=== PATIENT | female | born 1990 | race Two or more races ===

== ENCOUNTER → 2017-08-21 | Outpatient (CLI) | payer SELFPAY ==
--- NOTE | 2017-08-21 15:48 | RADIOLOGY REPORT (SQ) ---
EXAM DESCRIPTION: U/S OB 14+ TRNABD 1GES W/O DOP COMPLETED DATE/TIME: 08/21/2017 3:33 pm REASON FOR STUDY: ENCOUNTER FOR SUPERVISION OF OTHER NORMAL , SECOND TRIMESTER Z34.82 ENCO UNTER FOR SUPRVSN OF NORMAL , SECOND TRI COMPARISON: None. TECHNIQUE: Static and Dynamic grayscale imaging performed of gravid uterus using transabdominal appr oach. Additional selected color Doppler and spectral images recorded. All stored on PACS. LIMITATIONS: None. FINDINGS: EGA: 18 week. DANIEL: 01/22/2018. EFW: 221 g. grams PERCENTILE: Not applicable. Fetus less than or equal to 20 weeks gestation. ROLLY: Adequate amount. PLACENTA: Anterior. GRADE: II PRESENTATION: Breech. ANATOMY: HEART RATE: 149 beats per minute. FOUR CHAMBER HEART: Visualized. THREE VESSEL CORD: Yes. CORD INSERTION: Visualized. KIDNEYS AND BLADDER: Mild prominence of the right and left renal pelvis. STOMACH: Visualized. Appears normal. SPINE: Normal as visualized. BRAIN AND LATERAL VENTRICLES: Visualized. Appear normal. OTHER: No other significant finding. MATERNAL ADNEXA: Maternal ovaries not visualized. CERVICAL LENGTH: 3.0 cm. Closed. OTHER: No other significant finding. IMPRESSION: LIVING INTRAUTERINE . ESTIMATED GESTATIONAL AGE 18 WEEK. MILD PROMINENCE OF THE RIGHT AND LEFT RENAL PELVIS, BORDERLINE HYDRONEPHROSIS. RECOMMEND FOLLOW-UP U LTRASOUND IN SEVERAL WEEKS TO RE-EVALUATE. Trimester of : Second trimester - 13 weeks 1 day to 27 weeks 6 days. TECHNICAL DOCUMENTATION: JOB ID: [id number] [employer]- All Rights Reserved
== END ==
LOC: RAD 14:10
PROVIDERS: ATTEND Nurse Practitioner Women's Health
DX: Z34.82 Encounter for supervision of other normal pregnancy, second trimester (principal)
CPT/HCPCS: 76805

== ENCOUNTER → 2017-09-11 | Outpatient (CLI) | payer MEDICAID ==
--- NOTE | 2017-09-11 18:01 | RADIOLOGY REPORT (SQ) ---
EXAM DESCRIPTION: U/S OB 14+ TRNABD 1GES W/O DOP COMPLETED DATE/TIME: 09/11/2017 5:38 pm REASON FOR STUDY: REEVALUATE/FOLLOW UP US Z34.82 ENCOUNTER FOR SUPRVSN OF NORMAL , SECOND TRI COMPARISON: 08/21/2017 TECHNIQUE: Static and Dynamic grayscale imaging performed of gravid uterus using transabdominal appr oach. Additional selected color Doppler and spectral images recorded. All stored on PACS. LIMITATIONS: None. FINDINGS: EGA: 21 weeks DANIEL: 01/22/2018 KIDNEYS: The renal pelvis on the right is dilated at 6.7 mm. The left renal pelvis is within normal limits at 3.9 mm. IMPRESSION: LIVING INTRAUTERINE . ESTIMATED GESTATIONAL AGE 21 weeks There is mild dilatation of the right renal pelvis. Recommend additional follow-up as clinically ind icated Trimester of : Second trimester - 13 weeks 1 day to 27 weeks 6 days. TECHNICAL DOCUMENTATION: JOB ID: [id number] [employer]- All Rights Reserved
== END ==
LOC: RAD 16:16
PROVIDERS: ATTEND Nurse Practitioner Women's Health
DX: Z34.82 Encounter for supervision of other normal pregnancy, second trimester (principal)
CPT/HCPCS: 76805

== ENCOUNTER → 2017-11-06 | Outpatient (CLI) | payer SELFPAY ==
--- NOTE | 2017-11-06 16:24 | RADIOLOGY REPORT (SQ) ---
EXAM DESCRIPTION: U/S OB 14+ TRNABD 1GES W/O DOP COMPLETED DATE/TIME: 11/06/2017 3:56 pm REASON FOR STUDY: ENCOUNTER FOR SUPERVISION OF OTHER NORMAL , THIRD TRIMESTER Z34.83 ENCOU NTER FOR SUPRVSN OF NORMAL , THIRD TRIM COMPARISON: 09/11/2017 TECHNIQUE: Limited transvaginal grayscale ultrasound for evaluation of specific requested obstetrica l parameters. LIMITATIONS: None. FINDINGS: Left renal pelvis measures 3 mm and the right renal pelvis measures 5 mm. Previously 3.9 and 6.7 mm, respectively. heart rate 158. Cervix 4.3 cm. Vertex presentation. IMPRESSION: Mild dilatation of the right renal pelvis compared to the left. No progression. Trimester of : 3rd trimester. TECHNICAL DOCUMENTATION: JOB ID: [id number] [employer]- All Rights Reserved
== END ==
LOC: RAD 13:10
PROVIDERS: ATTEND Nurse Practitioner Women's Health
DX: Z34.83 Encounter for supervision of other normal pregnancy, third trimester (principal)
CPT/HCPCS: 76805

== ENCOUNTER 2018-01-10 05:17 | Inpatient (IN) | payer SELFPAY ==
[2018-01-09 12:07] LABS: ABSOLUTE BASOPHILS # (AUTO) 0.1 10^3/uL (0.0-0.2); ABSOLUTE LYMPHOCYTES (AUTO) 2.1 10^3/uL (0.5-4.7); ABSOLUTE MONOCYTES (AUTO) 0.4 10^3/uL (0.1-1.4); EOSINOPHILS % (AUTO) 0.7 % (0-6); HEMATOCRIT 31.1 % (36.0-47.0); HEMOGLOBIN 9.9 g/dL (12.0-15.5); LYMPHOCYTES % (AUTO) 31.9 % (13-45); MEAN CORPUSCULAR HEMOGLOBIN 23.4 pg (27.0-33.4); MEAN CORPUSCULAR VOLUME 73 fl (80-97); PLATELET COUNT 279 10^3/uL (150-450); RED BLOOD COUNT 4.24 10^6/uL (3.72-5.28); SEGMENTED NEUTROPHILS % (AUTO) 60.4 % (42-78); TOTAL CELLS COUNTED % (AUTO) 100 %; WHITE BLOOD COUNT 6.6 10^3/uL (4.0-10.5)
[2018-01-09 12:17] LABS: APPEARANCE,URINE SLIGHTLY-CLOUDY; BILIRUBIN,URINE NEGATIVE (NEGATIVE); COLOR,URINE YELLOW; GLUCOSE, URINE NEGATIVE (NEGATIVE); KETONES,URINE NEGATIVE (NEGATIVE); LEUKOCYTE ESTERASE,URINE NEGATIVE (NEGATIVE); NITRITE,URINE NEGATIVE (NEGATIVE); PROTEIN,URINE NEGATIVE (NEGATIVE); URINE SPECIFIC GRAVITY 1.012; UROBILINOGEN,URINE NEGATIVE mg/dL (<2.0)
[2018-01-09 12:39] LABS: URINE AMPHETAMINES SCREEN NEGATIVE; URINE BARBITURATES SCREEN NEGATIVE; URINE BENZODIAZEPINES SCREEN NEGATIVE; URINE COCAINE SCREEN NEGATIVE; URINE MARIJUANA (THC) SCREEN NEGATIVE; URINE METHADONE SCREEN NEGATIVE; URINE PHENCYCLIDINE SCREEN NEGATIVE
[~2018-01-10 05:17] MED LIST: CEFAZOLIN 2 GM/D5W RTU 2 GM/50 ML RTUPB IV PRN; LACTATED RINGERS 1000 ML IV PRN; LIDOCAINE 0.5% INJ-PF (5 MG/ML) 50 ML SDV SUBCUT PRN
[2018-01-10] MEDS ORDERED: EPHEDRINE SULFATE INJ 50 MG/1 ML AMPULE ONE (07:31)
[2018-01-10] MEDS ORDERED: ONDANSETRON HCL INJ/PF 4 MG/2 ML SDV ONE (07:31)
[2018-01-10] MEDS ORDERED: MIDAZOLAM 2 MG/2 ML INJ ONE (07:31)
[2018-01-10] MEDS ORDERED: OXYTOCIN 10 UNIT/ML VIAL ONE (07:31)
[2018-01-10] MEDS ORDERED: FENTANYL CITRATE INJ/PF 100 MCG/2 ML AMPUL ONE ×2 (07:31→10:19)
[2018-01-10] MEDS ORDERED: DIPHENHYDRAMINE HCL 50 MG/ML VIAL IV PRN (07:43)
[2018-01-10] MEDS ORDERED: PROMETHAZINE HCL INJ 25 MG/1 ML VIAL IV PRN ×2 (07:43→08:59)
[2018-01-10] MEDS ORDERED: FENTANYL CITRATE INJ/PF 100 MCG/2 ML AMPUL IV PRN ×3 (07:43)
[2018-01-10] MEDS ORDERED: MEPERIDINE HCL/PF INJ 25 MG/1 ML DISP.SYRIN IV PRN (07:43)
[2018-01-10] MEDS ORDERED: OXYTOCIN/NORMAL SALINE 20 UNIT/1,000 ML RTUINJ IV PRN (08:59)
[2018-01-10] MEDS ORDERED: RINGERS SOLUTION,LACTATED 1,000 ML IV PRN (08:59)
[2018-01-10] MEDS ORDERED: OXYCODONE-ACETAMINOPHEN 5-325 MG TABLET PO PRN (08:59)
[2018-01-10] MEDS ORDERED: SIMETHICONE 80 MG TAB.CHEW PO PRN (08:59)
[2018-01-10] MEDS ORDERED: ACETAMINOPHEN 325 MG TABLET PO PRN (08:59)
[2018-01-10] MEDS ORDERED: MEASLES,MUMPS&RUBELLA VACC/PF 0.5 ML VIAL SUBCUT PRN (08:59)
[2018-01-10] MEDS ORDERED: DIPH/PERTUSS(ACELL)/TETANUS VAC/PF 0.5 ML SYR (>=10YO) IM PRN (08:59)
--- NOTE | 2018-01-10 09:14 | Operative Report ---
Operative Report DATE OF SURGERY: 01/10/18 PREOPERATIVE DIAGNOSIS: Repeat to prevent risk from uterine rupture POSTOPERATIVE DIAGNOSIS: Same OPERATION: Repeat via low transverse uterine incision SURGEON: LUCAS REYNAGA ANESTHESIA: Spinal TISSUE REMOVED OR ALTERED: Placenta COMPLICATIONS: None ESTIMATED BLOOD LOSS: 250 cc INTRAOPERATIVE FINDINGS: Viable female Apgars 9 9 weight 5 lbs. 9 oz. also there was adhesion from the uterus to anterior abdominal wall which was lysed during the case. PROCEDURE: Patient was taken to the OR and placed in supine position after her spinal anesthesia. She is prepared and draped in sterile fashion. Harper was placed for drainage of the bladder. Low transverse incision was made and carried down the level of the fascia. The fascial incision was made with knife and extended bilaterally with curved Hollingsworth scissors. The fascia was off the rectus muscles using sharp and blunt dissection. The rectus muscles are in the midline. The peritoneum was entered without incident. Bladder blade was placed in uterine segment was identified. A low transverse incision was made creating a bladder flap. Bladder blade was placed low transverse uterine incision was made with the csafe knife and extended with fingertips. The baby was delivered with some fundal pressure. Mouth and nose were suctioned free. The cord is doubly clamped and cut. Baby is passed off to the network systems consultant in attendance. The placenta was manually extracted with trailing membranes. The uterus was externalized wrapped in a moist lap sponge. There was a dense adhesion from the uterus to the anterior vaginal wall. This was taken down by doubing clamping, cutting the adhesion and tying off each side with chromic suture. Uterine contents wiped free. Uterus was closed with a running locking layer of 0 chromic suture using the second layer to imbricate the first completing a double layer closure of the uterus. The serosa was closed with a running 2-0 chromic stitch. The pelvis was irrigated and suctioned free of fluid the uterus was replaced in the abdomen. The abdominal wall peritoneum was closed with running 2-0 chromic stitch. Fascia was closed with a running 0 Vicryl in 2 segments. Nino's layer was brought together with 0 plain gut stitch and the skin was closed with running subcuticular 4-0 undyed Vicryl stitch. The wound was dressed mother and baby did well.
[2018-01-10] MEDS ORDERED: ACETAMINOPHEN 100 ML IV ONE (09:33)
[2018-01-10] MEDS ORDERED: KETOROLAC TROMETHAMINE INJ/PF 30 MG/1 ML SDV ONE (09:33)
[2018-01-10] MEDS: DOCUSATE SODIUM 100 MG CAPSULE PO SCH ×2 (11:17→17:15)
[2018-01-10] MEDS: PRENATAL VITAMIN W DHA CAPSULE PO SCH (11:20)
[2018-01-10] MEDS: IBUPROFEN 800 MG TABLET PO SCH ×3 (11:23→23:10)
[2018-01-10] MEDS: HYDROMORPHONE HCL INJ/PF 2 MG/ML AMPULE IV PRN ×2 (11:27→19:18)
[2018-01-10] MEDS: KETOROLAC TROMETHAMINE INJ/PF 30 MG/1 ML SDV IV SCH ×2 (14:56→23:09)
[2018-01-11] MEDS: OXYCODONE-ACETAMINOPHEN 5-325 MG TABLET PO PRN ×2 (04:51→20:33)
[2018-01-11] MEDS: KETOROLAC TROMETHAMINE INJ/PF 30 MG/1 ML SDV IV SCH (05:20)
[2018-01-11] MEDS: IBUPROFEN 800 MG TABLET PO SCH ×3 (05:21→17:10)
[2018-01-11 07:03] LABS: HEMATOCRIT 17.9 % (36.0-47.0); MEAN CORPUSCULAR HEMOGLOBIN 23.9 pg (27.0-33.4); MEAN CORPUSCULAR HGB CONC 32.8 g/dL (32.0-36.0); MEAN CORPUSCULAR VOLUME 73 fl (80-97); PLATELET COUNT 203 10^3/uL (150-450); RED BLOOD COUNT 2.46 10^6/uL (3.72-5.28); RED CELL DISTRIBUTION WIDTH 15.8 % (11.5-14.0); WHITE BLOOD COUNT 9.3 10^3/uL (4.0-10.5)
[2018-01-11 07:06] LABS: HEMOGLOBIN 5.9 g/dL (12.0-15.5)
[2018-01-11] MEDS ORDERED: ACETAMINOPHEN 325 MG TABLET PO PRN (07:51)
[2018-01-11] MEDS ORDERED: DIPHENHYDRAMINE HCL 25 MG CAPSULE PO PRN (07:51)
[2018-01-11] MEDS ORDERED: NORMAL SALINE 250 ML IV PRN ×2 (07:51)
[2018-01-11] MEDS: DOCUSATE SODIUM 100 MG CAPSULE PO SCH ×2 (10:22→17:10)
[2018-01-11] MEDS: PRENATAL VITAMIN W DHA CAPSULE PO SCH (10:22)
--- NOTE | 2018-01-11 11:51 | PDOC PROGRESS REPORT ---
Subjective-OB Progress Note for:: 01/11/18 Subjective: Post op repeat c/s day #1 Pt tolerating diet, voiding, lochia is stable, does feel weak when she is up, reports dizziness, discussed blood transfusion. Physical Exam (OB) Vital Signs: Temp Pulse Resp BP Pulse Ox 98.6 F 86 20 93/51 L 100 01/11/18 10:54 01/11/18 10:54 01/11/18 10:54 01/11/18 10:54 01/11/18 10:54 Intake & Output 01/10/18 01/11/18 01/12/18 06:59 06:59 06:59 Intake Total 1868 0 Output Total 1225 Balance 643 0 Weight 59.421 kg - Dressing Removed: No - op site Incision: Dressing - Lochia Lochia Amount: Scant < 10 ml Lochia Color: Rubra/Red - Abdomen Description: Tender, Soft Hernia Present: No Fundal Description: Firm, Midline Fundal Height: u/u - u/2 Objective-Diagnostic Laboratory: 01/11/18 06:49 01/09/18 01/11/18 11:20 06:49 WBC 9.3 RBC 2.46 L Hgb 5.9 L D Hct 17.9 L MCV 73 L MCH 23.9 L MCHC 32.8 RDW 15.8 H Plt Count 203 Blood Type O POSITIVE Antibody Screen NEGATIVE 01/09/18 08:30 Urine,Voided (Not Clean Catch) Chlamydia trachomatis (JERSON) - Final 01/09/18 08:30 Urine,Voided (Not Clean Catch) Neisseria gonorrhoeae (JERSON) - Final 01/09/18 08:30 Urine,Voided (Not Clean Catch) Chlamydia/GC DNA (JERSON) - Final Assessment and Plan(PN) - Assessment and Plan (1) Anemia affecting Qualifiers: Trimester: third trimester Qualified Code(s): O99.013 - Anemia complicating , third trimester Is this a current diagnosis for this admission?: Yes Plan: fe sulfate (2) Anemia due to blood loss, acute Is this a current diagnosis for this admission?: Yes Plan: 2 units prbc ordered (3) Status post repeat low transverse section Is this a current diagnosis for this admission?: Yes Plan: routine pp care - Time Spent with Patient Time with patient: Less than 15 minutes Critical Time spent with patient: Less than 15 minutes Medications reviewed and adjusted accordingly: Yes - Disposition Anticipated Discharge: Home Within: within 24 hours
[2018-01-12] MEDS: IBUPROFEN 800 MG TABLET PO SCH ×2 (00:47→05:34)
[2018-01-12 06:18] LABS: ABSOLUTE EOSINOPHILS # (AUTO) 0.1 10^3/uL (0.0-0.6); ABSOLUTE MONOCYTES (AUTO) 0.9 10^3/uL (0.1-1.4); ABSOLUTE NEUT (AUTO) 7.9 10^3/uL (1.7-8.2); BASOPHILS % (AUTO) 0.4 % (0-2); EOSINOPHILS % (AUTO) 0.7 % (0-6); LYMPHOCYTES % (AUTO) 18.4 % (13-45); MEAN CORPUSCULAR HEMOGLOBIN 25.4 pg (27.0-33.4); MEAN CORPUSCULAR HGB CONC 33.6 g/dL (32.0-36.0); MEAN CORPUSCULAR VOLUME 76 fl (80-97); MONOCYTES % (AUTO) 8.1 % (3-13); PLATELET COUNT 218 10^3/uL (150-450); RED BLOOD COUNT 3.42 10^6/uL (3.72-5.28); RED CELL DISTRIBUTION WIDTH 17.5 % (11.5-14.0); SEGMENTED NEUTROPHILS % (AUTO) 72.4 % (42-78); TOTAL CELLS COUNTED % (AUTO) 100 %
[2018-01-12 06:19] LABS: HEMOGLOBIN 8.7 g/dL (12.0-15.5)
--- NOTE | 2018-01-12 09:00 | PDOC DISCHARGE SUMMARY ---
Final Diagnosis Discharge Date: 01/12/18 - Final Diagnosis (1) Anemia affecting Is this a current diagnosis for this admission?: Yes (2) Anemia due to blood loss, acute Is this a current diagnosis for this admission?: Yes (3) Status post repeat low transverse section Is this a current diagnosis for this admission?: Yes Discharge Data - Discharge Medication Prescriptions: Oxycodone HCl/Acetaminophen [Percocet 5-325 mg Tablet] 2 tab PO Q4HP PRN #30 tablet PRN Reason: Docusate Sodium [Colace 100 mg Capsule] 100 mg PO BID #60 capsule Ferrous Sulfate 325 mg PO BID #60 tablet. Ibuprofen [Motrin 800 mg Tablet] 800 mg PO Q6 #60 tablet Home Medications: Docusate Sodium [Colace 100 mg Capsule] 100 mg PO BID #60 capsule 01/12/18 Ferrous Sulfate 325 mg PO BID #60 tablet. 01/12/18 Ibuprofen [Motrin 800 mg Tablet] 800 mg PO Q6 #60 tablet 01/12/18 Oxycodone HCl/Acetaminophen [Percocet 5-325 mg Tablet] 2 tab PO Q4HP PRN #30 tablet 01/12/18 Gestational Age: 39 Reason(s) for Admission: Ceasarean Section-Repeat Intrapartum Procedure(s): : Low Cervical, Transverse - Diagnosis Test Laboratory: Temp Pulse Resp BP Pulse Ox 98.5 F 94 16 97/52 L 98 01/12/18 05:35 01/12/18 05:35 01/12/18 05:35 01/12/18 05:35 01/12/18 05:35 01/09/18 01/09/18 01/11/18 11:05 11:20 06:49 RBC 4.24 2.46 L Hgb 9.9 L 5.9 L D Hct 31.1 L 17.9 L Urine Opiates Screen NEGATIVE 01/12/18 06:02 RBC 3.42 L Hgb 8.7 L D Hct 26.0 L Urine Opiates Screen - Discharge information/Instructions Discharge Activity: Activity As Tolerated, No Driving, No Lifting Over 10 Pounds , Pelvic Rest, No tub bath Discharge Diet: Regular Disposition: HOME, SELF-CARE Follow up with: [facility] in: 1, Weeks
[2018-01-12] MEDS: DOCUSATE SODIUM 100 MG CAPSULE PO SCH (10:10)
[2018-01-12] MEDS: PRENATAL VITAMIN W DHA CAPSULE PO SCH (10:10)
[2018-01-12 10:54] VITALS: BP 98/54
== END 2018-01-12 12:52 | disposition home or self-care (01) | DRG 765 ==
LOC: 2S 05:17
PROVIDERS: ADMIT Obstetrics & Gynecology; ATTEND Obstetrics & Gynecology
PROC: 4A1HXCZ Monitoring of Products of Conception, Cardiac Rate, External Approach (ICD-10-PCS; 2018-01-10)
PROC: 10D00Z1 Extraction of Products of Conception, Low, Open Approach (ICD-10-PCS; principal; 2018-01-10 07:45)
PROC: 30233N1 Transfusion of Nonautologous Red Blood Cells into Peripheral Vein, Percutaneous Approach (ICD-10-PCS; 2018-01-11)
DX: O34.211 Maternal care for low transverse scar from previous cesarean delivery (principal); D62 Acute posthemorrhagic anemia; O99.02 Anemia complicating childbirth; Z3A.39 39 weeks gestation of pregnancy; Z37.0 Single live birth
CPT/HCPCS: 1961; 36415; 36430; 59025; 80307; 81001; 85025; 85027; 86850; 86900; 86901; 86920; 87491; 87591; 94799; J0131; J1170; J1885; J2250; J2405; J2590; J3010; J3490; J7120; P9016